=== PATIENT | female | born 1950 | race African-American/Black ===

== ENCOUNTER 2018-04-05 04:26 | Inpatient (IN) | payer MEDICARE, BC ==
[~2018-04-05] VITALS: Ht 171.4 cm; Wt 104.8 kg
[2018-04-05] MEDS ORDERED: ASPIRIN 81MG TABLET PO ONE (05:15)
[2018-04-05] MEDS ORDERED: NITROGLYCERIN OINT 1GM/INCH UDPKT TD ONE (05:15)
[2018-04-05] MEDS ORDERED: FUROSEMIDE 40MG/4ML VIAL IV ONE (05:15)
[2018-04-05 06:27] LABS: CHLORIDE 105 mEq/L (98-107)
[2018-04-05 06:32] LABS: BASOPHILS % 0.2 % (0.0-2.0); EOSINOPHILS % 0.7 % (0.0-5.0); HEMATOCRIT. 41.8 % (36.0-48.0); LYMPHOCYTES % 18.1 % (20.0-50.0); MEAN PLATELET VOLUME 8.8 fl (7.4-10.4); MONOCYTES % 4.7 % (2.0-8.0); NEUTROPHILS % 76.3 % (40.0-76.0); PLATELET 154 x1000/uL (130-400); RED CELL DISTRIBUTION WIDTH 13.7 % (11.6-14.6)
[2018-04-05] MEDS ORDERED: GUAIFENESIN 200MG/10ML SUGAR FREE UDC PO PRN (09:00)
[2018-04-05] MEDS ORDERED: LORAZEPAM 0.5MG TABLET PO PRN (09:00)
[2018-04-05] MEDS ORDERED: DOCUSATE SODIUM 100MG CAPSULE PO PRN (09:00)
[2018-04-05] MEDS ORDERED: MAGNESIUM/ALUMINUM HYDROXIDE/SIMETHICONE 30ML UDC PO PRN (09:00)
[2018-04-05] MEDS ORDERED: IPRATROPIUM/ALBUTEROL 0.5-3(2.5)MG/3ML NEB INH PRN (09:00)
[2018-04-05] MEDS ORDERED: ACETAMINOPHEN 325MG TABLET PO PRN (09:00)
[2018-04-05] MEDS ORDERED: ZOLPIDEM TARTRATE 5MG TABLET PO PRN (09:00)
[2018-04-05] MEDS ORDERED: CLONIDINE 0.1MG TABLET PO PRN (09:00)
[2018-04-05] MEDS ORDERED: ONDANSETRON HCL 4MG/2ML INJ IV PRN (09:00)
[2018-04-05] MEDS ORDERED: NITROGLYCERIN 0.4MG TABLET SL SL PRN (09:00)
[2018-04-05 15:26] LABS: CREATINE KINASE MB FRACTION 3.2 ng/mL (0.5-3.6)
[2018-04-05] MEDS ORDERED: ENOXAPARIN 40MG/0.4ML SYR SUBCUT SCH (15:30)
[2018-04-05] MEDS: FUROSEMIDE 40MG/4ML VIAL IVP SCH (16:12)
[2018-04-05] MEDS: SPIRONOLACTONE 25MG TABLET PO SCH ×2 (16:12→22:42)
[2018-04-05] MEDS: FAMOTIDINE 20MG TABLET PO SCH ×2 (16:13→21:27)
[2018-04-05 20:30] VITALS: BP 133/87
[2018-04-05] MEDS ORDERED: MORPHINE SULFATE 4 MG/ML CPJ (NOT FOR IM USE) IV PRN (21:15)
[2018-04-05] MEDS ORDERED: TRAMADOL 50MG TABLET PO PRN (21:15)
[2018-04-05] MEDS: ATORVASTATIN CALCIUM 20MG TABLET PO SCH (21:28)
[2018-04-05] MEDS: CARVEDILOL 3.125 MG TABLET PO SCH (21:29)
[2018-04-05] MEDS ORDERED: PROVASTATIN PO (21:36)
[2018-04-05] MEDS ORDERED: HYDR25TA PO (21:36)
[2018-04-05] MEDS ORDERED: AMLO5TAB88 PO (21:36)
[2018-04-05 22:00] VITALS: BP 133/87
[2018-04-06] VITALS (7 sets, daily range): BP systolic 102–145; BP diastolic 65–95
[2018-04-06 00:54] LABS: CREATINE KINASE MB FRACTION 3.2 ng/mL (0.5-3.6)
[2018-04-06] MEDS: CARVEDILOL 3.125 MG TABLET PO SCH ×2 (06:15→17:30)
[2018-04-06] MEDS: FUROSEMIDE 40MG/4ML VIAL IVP SCH ×2 (06:15→17:30)
[2018-04-06 07:12] LABS: *BARBITURATES SCREEN URINE NEGATIVE (NEGATIVE)
[2018-04-06 07:13] LABS: *AMPHETAMINES SCREEN URINE NEGATIVE (NEGATIVE); *BENZODIAZEPINES SCREEN URINE NEGATIVE (NEGATIVE); *COCAINE SCREEN URINE NEGATIVE (NEGATIVE); METHADONE URINE SCREEN NEGATIVE (NEGATIVE); OPIATES URINE SCREEN NEGATIVE (NEGATIVE)
[2018-04-06 07:15] LABS: CANNABINOID URINE SCREEN NEGATIVE (NEGATIVE); PHENCYCLIDINE URINE SCREEN NEGATIVE (NEGATIVE)
[2018-04-06] MEDS ORDERED: NA PHOS,M-B/NA PHOS,DI-BA ENEMA 118ML PR PRN (09:00)
[2018-04-06] MEDS: SPIRONOLACTONE 25MG TABLET PO SCH ×2 (09:04→20:43)
[2018-04-06] MEDS: FAMOTIDINE 20MG TABLET PO SCH ×2 (09:04→20:44)
[2018-04-06] MEDS: ENOXAPARIN 30MG/0.3ML SYR SUBCUT SCH ×2 (09:04→20:44)
[2018-04-06] MEDS: ATORVASTATIN CALCIUM 20MG TABLET PO SCH (20:43)
[2018-04-07] VITALS: BP 104/63
[2018-04-07 04:00] VITALS: BP 149/100
[2018-04-07] MEDS: CARVEDILOL 3.125 MG TABLET PO SCH ×2 (05:46→18:32)
[2018-04-07 08:00] VITALS: BP 115/72
[2018-04-07] MEDS: ENOXAPARIN 30MG/0.3ML SYR SUBCUT SCH ×2 (08:13→20:39)
[2018-04-07] MEDS: SPIRONOLACTONE 25MG TABLET PO SCH ×2 (08:13→20:40)
[2018-04-07] MEDS: FAMOTIDINE 20MG TABLET PO SCH ×2 (08:13→20:38)
[2018-04-07] MEDS: FUROSEMIDE 40MG/4ML VIAL IVP SCH (08:13)
[2018-04-07 12:00] VITALS: BP 117/76
[2018-04-07] MEDS ORDERED: REGADENOSON 0.4 MG/5 ML IV NR (15:30)
[2018-04-07 16:00] VITALS: BP 124/82
[2018-04-07] MEDS ORDERED: MORPHINE SULFATE 10MG/5ML ORAL SOLN UDC PO PRN (19:00)
[2018-04-07 20:00] VITALS: BP 110/73
[2018-04-07] MEDS: ATORVASTATIN CALCIUM 20MG TABLET PO SCH (20:38)
[2018-04-08] VITALS: BP 117/76
[2018-04-08 04:00] VITALS: BP 120/81
[2018-04-08] MEDS: CARVEDILOL 3.125 MG TABLET PO SCH (05:29)
[2018-04-08 07:22] LABS: BASOPHILS % 0.6 % (0.0-2.0); EOSINOPHILS % 1.6 % (0.0-5.0); HEMATOCRIT. 44.2 % (36.0-48.0); LYMPHOCYTES % 32.8 % (20.0-50.0); MEAN CORPUSCULAR HEMOGLOBIN 31.3 pg (28.0-32.0); MEAN CORPUSCULAR VOLUME 92.1 fL (81.0-99.0); MEAN PLATELET VOLUME 8.5 fl (7.4-10.4); MONOCYTES % 8.1 % (2.0-8.0); NEUTROPHILS % 56.9 % (40.0-76.0); PLATELET 174 x1000/uL (130-400); RED CELL DISTRIBUTION WIDTH 13.5 % (11.6-14.6)
[2018-04-08 08:00] VITALS: BP 121/81
[2018-04-08] MEDS ORDERED: REGADENOSON 0.4 MG/5 ML IV ONE (08:07)
[2018-04-08 08:08] LABS: CHLORIDE 101 mEq/L (98-107)
[2018-04-08 08:16] LABS: CREATINE KINASE 103 IU/L (26-192)
[2018-04-08 08:19] LABS: CREATINE KINASE MB FRACTION 1.3 ng/mL (0.5-3.6)
[2018-04-08] MEDS: SPIRONOLACTONE 25MG TABLET PO SCH (09:44)
[2018-04-08] MEDS: FAMOTIDINE 20MG TABLET PO SCH (09:44)
[2018-04-08] MEDS: ENOXAPARIN 30MG/0.3ML SYR SUBCUT SCH (09:45)
[2018-04-08 11:41] VITALS: BP 121/81
== END 2018-04-08 13:26 | disposition home health service (06) | DRG 291 ==
LOC: EDSEX 04:26 → ER 04:26 → SUPCPDRO 08:41 → ENRESERV 19:37 → 7WST 20:42
PROVIDERS: ADMIT Internal Medicine; ATTEND Internal Medicine
DX: I11.0 Hypertensive heart disease with heart failure (principal); J96.00 Acute respiratory failure, unspecified whether with hypoxia or hypercapnia; I50.43 Acute on chronic combined systolic (congestive) and diastolic (congestive) heart failure; I42.9 Cardiomyopathy, unspecified; E16.2 Hypoglycemia, unspecified; E78.00 Pure hypercholesterolemia, unspecified; Z79.899 Other long term (current) drug therapy; Z85.72 Personal history of non-Hodgkin lymphomas; Z91.14 Patient's other noncompliance with medication regimen; Z92.21 Personal history of antineoplastic chemotherapy; Z88.0 Allergy status to penicillin; Z88.8 Allergy status to other drugs, medicaments and biological substances
CPT/HCPCS: 36415; 71045; 78452; 80061; 80305; 82550; 82553; 83036; 83735; 83880; 84443; 84484; 85379; 93005; 93017; 93306; 93970; 96372; 96374; 96376; 97162; 97166; 99285; A9500; J1650; J1940; J2785

== ENCOUNTER 2018-10-01 05:12 | Inpatient (IN) | payer BC, MEDICARE ==
[~2018-10-01] VITALS: Ht 170.2 cm; Wt 104.9 kg
[2018-10-01] VITALS (8 sets, daily range): BP systolic 123–150; BP diastolic 65–91
[2018-10-01] MEDS ORDERED: ONDANSETRON HCL 4MG/2ML INJ IV STA (05:17)
[2018-10-01] MEDS ORDERED: NITROGLYCERIN OINT 1GM/INCH UDPKT TD ONE (05:30)
[2018-10-01] MEDS ORDERED: LABETALOL 5MG/ML SYR 20 MG/4 ML SYRINGE IV ONE (05:30)
[2018-10-01 05:37] LABS: BASOPHILS % 0.6 % (0.0-2.0); HEMATOCRIT. 42.7 % (36.0-48.0); HEMOGLOBIN. 13.9 g/dL (12.0-16.0); LYMPHOCYTES % 32.9 % (20.0-50.0); MEAN CORPUSCULAR HEMOGLOBIN 30.4 pg (28.0-32.0); MEAN CORPUSCULAR VOLUME 93.2 fL (81.0-99.0); MEAN PLATELET VOLUME 8.8 fl (7.4-10.4); NEUTROPHILS % 60.5 % (40.0-76.0); PLATELET 151 x1000/uL (130-400); RED BLOOD CELL COUNT 4.58 mill/uL (4.2-5.4); RED CELL DISTRIBUTION WIDTH 13.5 % (11.6-14.6)
[2018-10-01 05:43] LABS: INR 1.1
[2018-10-01 06:03] LABS: BG BASE EXCESS -3.4 mmol/L (-2.0-2.0); BG BILEVEL POS AIRWAY PRESSURE S/T: 18/5; BG CARBOXYHEMOGLOBIN 0.7 % (0.5-1.5); BG DEOXYHEMOGLOBIN 1.2 % (0.0-5.0); BG FRACTION INSPIRED OXYGEN 50; BG HCO3 ACT 22.7 mmol/L (22.0-26.0); BG METHEMOGLOBIN 0.4 % (0.0-1.5); BG OXYGEN SATURATION 98.8 % (92.0-98.5); BG OXYHEMOGLOBIN 97.7 % (94.0-97.0); BG PCO2 44.9 mmHg (35.0-45.0); BG PH 7.322 (7.350-7.450); BG PO2 156.1 mmHg (75.0-100.0); BG SAMPLE SITE RIGHT RADIAL; BG TOTAL HEMOGLOBIN 14.2 g/dL (12.0-18.0); BG VENT MODE MASK - BIPAP
[2018-10-01 06:23] LABS: CHLORIDE 108 mEq/L (98-107)
[2018-10-01] MEDS ORDERED: FAMO-135 MT (10:55)
[2018-10-01] MEDS ORDERED: FURO40TA5 MT (10:55)
[2018-10-01] MEDS ORDERED: COR3 MT (10:55)
[2018-10-01] MEDS ORDERED: CLONIDINE 0.1MG TABLET PO PRN ×2 (11:30→19:00)
[2018-10-01] MEDS: FUROSEMIDE 40MG/4ML VIAL IVP SCH (11:51)
[2018-10-01] MEDS ORDERED: DIPHENHYDRAMINE 50MG/ML VIAL IV PRN (19:00)
[2018-10-01] MEDS ORDERED: TEMAZEPAM 15MG CAPSULE PO PRN (19:00)
[2018-10-01] MEDS ORDERED: IPRATROPIUM/ALBUTEROL 0.5-3(2.5)MG/3ML NEB INH PRN (19:00)
[2018-10-01] MEDS ORDERED: ACETAMINOPHEN 325MG TABLET PO PRN (19:00)
[2018-10-01] MEDS ORDERED: ENOXAPARIN 40MG/0.4ML SYR SUBCUT SCH (19:00)
[2018-10-01] MEDS ORDERED: ONDANSETRON HCL 4MG/2ML INJ IV PRN (19:00)
[2018-10-01] MEDS ORDERED: GUAIFENESIN 200MG/10ML SUGAR FREE UDC PO PRN (19:00)
[2018-10-01] MEDS ORDERED: MAGNESIUM HYDROXIDE 400MG/5ML 30ML UDC PO PRN (19:00)
[2018-10-01] MEDS ORDERED: MAGNESIUM/ALUMINUM HYDROXIDE/SIMETHICONE 30ML UDC PO PRN (19:00)
[2018-10-01] MEDS: FAMOTIDINE 20MG TABLET PO SCH (21:30)
[2018-10-01] MEDS: CARVEDILOL 3.125 MG TABLET PO SCH (21:31)
[2018-10-01] MEDS: ENOXAPARIN 30MG/0.3ML SYR SUBCUT SCH (21:31)
[2018-10-01] MEDS: AMLODIPINE 5MG TABLET PO SCH (21:58)
[2018-10-01] MEDS: SODIUM CHLORIDE 0.9% INJ 3ML FLUSH IVF SCH (22:20)
[2018-10-02] VITALS (12 sets, daily range): BP systolic 101–140; BP diastolic 55–95
[2018-10-02] MEDS: SODIUM CHLORIDE 0.9% INJ 3ML FLUSH IVF SCH ×3 (05:45→22:19)
[2018-10-02] MEDS: ENOXAPARIN 30MG/0.3ML SYR SUBCUT SCH ×2 (07:59→21:35)
[2018-10-02] MEDS: AMLODIPINE 5MG TABLET PO SCH (07:59)
[2018-10-02] MEDS: FUROSEMIDE 40MG/4ML VIAL IVP SCH (08:00)
[2018-10-02] MEDS: CARVEDILOL 3.125 MG TABLET PO SCH ×2 (08:00→22:23)
[2018-10-02] MEDS: LOSARTAN POTASSIUM 25 MG TABLET PO SCH (13:31)
[2018-10-02] MEDS ORDERED: POTASSIUM CHLORIDE 20MEQ TABLET SR PO NR (19:11)
[2018-10-02] MEDS: FAMOTIDINE 20MG TABLET PO SCH (21:34)
[2018-10-03] VITALS (8 sets, daily range): BP systolic 105–137; BP diastolic 55–99
[2018-10-03] MEDS: SODIUM CHLORIDE 0.9% INJ 3ML FLUSH IVF SCH ×2 (05:57→14:00)
[2018-10-03 05:59] LABS: BASOPHILS % 0.2 % (0.0-2.0); EOSINOPHILS % 2.6 % (0.0-5.0); HEMATOCRIT. 39.7 % (36.0-48.0); HEMOGLOBIN. 13.1 g/dL (12.0-16.0); LYMPHOCYTES % 26.2 % (20.0-50.0); MEAN CORPUSCULAR HEMOGLOBIN 30.9 pg (28.0-32.0); MEAN CORPUSCULAR VOLUME 93.6 fL (81.0-99.0); MEAN PLATELET VOLUME 9.4 fl (7.4-10.4); MONOCYTES % 8.4 % (2.0-8.0); NEUTROPHILS % 62.6 % (40.0-76.0); PLATELET 142 x1000/uL (130-400); RED BLOOD CELL COUNT 4.24 mill/uL (4.2-5.4); RED CELL DISTRIBUTION WIDTH 14.1 % (11.6-14.6)
[2018-10-03 06:46] LABS: CHLORIDE 104 mEq/L (98-107)
[2018-10-03] MEDS: CARVEDILOL 3.125 MG TABLET PO SCH (08:26)
[2018-10-03] MEDS: FUROSEMIDE 40MG/4ML VIAL IVP SCH (08:26)
[2018-10-03] MEDS: LOSARTAN POTASSIUM 25 MG TABLET PO SCH (08:27)
[2018-10-03] MEDS: ENOXAPARIN 30MG/0.3ML SYR SUBCUT SCH (08:27)
== END 2018-10-03 17:00 | disposition home or self-care (01) | DRG 291 ==
LOC: ER 05:46 → 3WST 05:55 → EDBEDREQ 06:13 → EDBEDREQTM 06:13 → ENRESERV 09:51
PROVIDERS: ADMIT Internal Medicine; ATTEND Internal Medicine
PROC: 5A09357 Assistance with Respiratory Ventilation, Less than 24 Consecutive Hours, Continuous Positive Airway Pressure (ICD-10-PCS; principal; 2018-10-01)
DX: I11.0 Hypertensive heart disease with heart failure (principal); J96.00 Acute respiratory failure, unspecified whether with hypoxia or hypercapnia; E11.9 Type 2 diabetes mellitus without complications; I50.23 Acute on chronic systolic (congestive) heart failure; E78.00 Pure hypercholesterolemia, unspecified; E78.5 Hyperlipidemia, unspecified; I42.9 Cardiomyopathy, unspecified; Z82.49 Family history of ischemic heart disease and other diseases of the circulatory system; Z92.21 Personal history of antineoplastic chemotherapy; Z83.3 Family history of diabetes mellitus; Z88.0 Allergy status to penicillin; Z88.8 Allergy status to other drugs, medicaments and biological substances; Z79.899 Other long term (current) drug therapy; Z79.82 Long term (current) use of aspirin; Z85.72 Personal history of non-Hodgkin lymphomas
CPT/HCPCS: 36415; 36600; 71045; 80048; 82375; 82805; 83605; 83880; 84484; 93005; 93306; 94660; 96361; 96374; 96375; 99285; J1650; J1940; J2405; J3490

== ENCOUNTER 2019-05-09 03:48 | Inpatient (IN) | payer BC ==
[~2019-05-09] VITALS: Ht 171.4 cm; Wt 103.0 kg
[~2019-05-09 03:48] MED LIST: COR3 MT; FAMO-135 MT; FURO40TA5 MT
[2019-05-09] MEDS ORDERED: FUROSEMIDE 20MG/2ML VIAL IVP ONE ×2 (04:00→04:30)
[2019-05-09 04:29] LABS: CHLORIDE 107 mEq/L (98-107)
[2019-05-09 04:33] LABS: BG BASE EXCESS 0.2 mmol/L (-2.0-2.0); BG BILEVEL POS AIRWAY PRESSURE 15/5; BG CARBOXYHEMOGLOBIN 0.7 % (0.5-1.5); BG DEOXYHEMOGLOBIN 1.4 % (0.0-5.0); BG FRACTION INSPIRED OXYGEN 40; BG HCO3 ACT 25.4 mmol/L (22.0-26.0); BG METHEMOGLOBIN 0.3 % (0.0-1.5); BG OXYGEN SATURATION 98.6 % (92.0-98.5); BG OXYHEMOGLOBIN 97.6 % (94.0-97.0); BG PCO2 43.5 mmHg (35.0-45.0); BG PH 7.385 (7.350-7.450); BG PO2 136.6 mmHg (75.0-100.0); BG SAMPLE SITE RIGHT RADIAL; BG TOTAL HEMOGLOBIN 13.9 g/dL (12.0-18.0); BG VENT MODE MASK - BIPAP; BG VENT RATE 16 set
[2019-05-09 04:52] LABS: BASOPHILS % 0.3 % (0.0-2.0); EOSINOPHILS % 1.3 % (0.0-5.0); HEMATOCRIT. 40.5 % (36.0-48.0); HEMOGLOBIN. 13.5 g/dL (12.0-16.0); LYMPHOCYTES % 15.4 % (20.0-50.0); MEAN CORPUSCULAR HEMOGLOBIN 31.1 pg (28.0-32.0); MEAN CORPUSCULAR VOLUME 93.6 fL (81.0-99.0); MEAN PLATELET VOLUME 8.6 fl (7.4-10.4); MONOCYTES % 4.3 % (2.0-8.0); NEUTROPHILS % 78.7 % (40.0-76.0); PLATELET 138 x1000/uL (130-400); RED BLOOD CELL COUNT 4.33 mill/uL (4.2-5.4); RED CELL DISTRIBUTION WIDTH 14.1 % (11.6-14.6)
[2019-05-09] MEDS ORDERED: FAMOTIDINE 20MG/2ML VIAL IV ONE (05:30)
[2019-05-09] MEDS ORDERED: ASPIRIN 325MG TABLET PO ONE (05:30)
[2019-05-09] MEDS ORDERED: ONDANSETRON HCL 4MG/2ML INJ IV PRN (09:30)
[2019-05-09] MEDS ORDERED: ACETAMINOPHEN 325MG TABLET PO PRN (09:30)
[2019-05-09] MEDS ORDERED: IPRATROPIUM/ALBUTEROL 0.5-3(2.5)MG/3ML NEB HHN PRN (11:00)
[2019-05-09] MEDS ORDERED: FUROSEMIDE 40MG/4ML VIAL IVP NR (18:15)
[2019-05-09 20:00] VITALS: BP 125/72
[2019-05-09] MEDS: ENOXAPARIN 30MG/0.3ML SYR SUBCUT SCH (21:45)
[2019-05-09 22:00] VITALS: BP 125/72
[2019-05-10] VITALS: BP 113/69
[2019-05-10] MEDS ORDERED: LOSA25TA26 PO ×2 (01:45→13:40)
[2019-05-10] MEDS ORDERED: LIP40 PO ×2 (01:45→13:40)
[2019-05-10 04:00] VITALS: BP 128/84
[2019-05-10 06:47] LABS: BASOPHILS % 0.7 % (0.0-2.0); EOSINOPHILS % 1.6 % (0.0-5.0); HEMATOCRIT. 38.1 % (36.0-48.0); HEMOGLOBIN. 12.8 g/dL (12.0-16.0); LYMPHOCYTES % 29.7 % (20.0-50.0); MEAN CORPUSCULAR HEMOGLOBIN 30.9 pg (28.0-32.0); MEAN CORPUSCULAR VOLUME 91.8 fL (81.0-99.0); MEAN PLATELET VOLUME 9.8 fl (7.4-10.4); MONOCYTES % 8.6 % (2.0-8.0); NEUTROPHILS % 59.4 % (40.0-76.0); PLATELET 141 x1000/uL (130-400); RED BLOOD CELL COUNT 4.15 mill/uL (4.2-5.4)
[2019-05-10 06:52] LABS: CHLORIDE 106 mEq/L (98-107)
[2019-05-10 08:00] VITALS: BP 113/71
[2019-05-10 08:09] LABS: CLARITY URINE CLEAR (CLEAR); COLOR URINE YELLOW (YELLOW); KETONES URINE NEGATIVE (NEGATIVE); LEUKOCYTE ESTERASE URINE NEGATIVE (NEGATIVE); NITRITE URINE NEGATIVE (NEGATIVE); OCCULT BLOOD URINE NEGATIVE (NEGATIVE); PROTEIN URINE NEGATIVE (NEGATIVE); SPECIFIC GRAVITY URINE 1.019 (1.005-1.030); UROBILINOGEN URINE 0.2 E.U./dL (0.2-1.0)
[2019-05-10 08:41] LABS: *AMPHETAMINES SCREEN URINE NEGATIVE (NEGATIVE); *BARBITURATES SCREEN URINE NEGATIVE (NEGATIVE); *BENZODIAZEPINES SCREEN URINE NEGATIVE (NEGATIVE); *COCAINE SCREEN URINE NEGATIVE (NEGATIVE); METHADONE URINE SCREEN NEGATIVE (NEGATIVE); OPIATES URINE SCREEN NEGATIVE (NEGATIVE)
[2019-05-10 08:42] LABS: CANNABINOID URINE SCREEN NEGATIVE (NEGATIVE); PHENCYCLIDINE URINE SCREEN NEGATIVE (NEGATIVE)
[2019-05-10] MEDS ORDERED: FUROSEMIDE 40MG/4ML VIAL IVP SCH (09:00)
[2019-05-10] MEDS ORDERED: ASPIRIN 81MG TABLET PO SCH (09:00)
[2019-05-10] MEDS: ENOXAPARIN 30MG/0.3ML SYR SUBCUT SCH (09:50)
[2019-05-10] MEDS ORDERED: POTASSIUM CHLORIDE 20MEQ TABLET SR PO SCH (10:00)
[2019-05-10 12:00] VITALS: BP 112/73
[2019-05-10] MEDS ORDERED: FURO40TA5 MT (13:40)
[2019-05-10] MEDS ORDERED: POTA20TA82 MT (13:40)
[2019-05-10] MEDS ORDERED: COR3 MT (13:40)
[2019-05-10 14:31] VITALS: BP 112/73
[2019-05-11] MEDS ORDERED: POTASSIUM CHLORIDE 20MEQ TABLET SR PO SCH (09:00)
== END 2019-05-10 16:20 | disposition home or self-care (01) | DRG 291 ==
LOC: ER 03:48 → 5WST 05:23 → EDBEDREQ 05:25 → EDBEDREQTM 05:25 → ENRESERV 18:10
PROVIDERS: ADMIT Internal Medicine; ATTEND Internal Medicine
PROC: 5A09357 Assistance with Respiratory Ventilation, Less than 24 Consecutive Hours, Continuous Positive Airway Pressure (ICD-10-PCS; principal; 2019-05-09)
DX: I11.0 Hypertensive heart disease with heart failure (principal); J96.00 Acute respiratory failure, unspecified whether with hypoxia or hypercapnia; I50.23 Acute on chronic systolic (congestive) heart failure; I42.9 Cardiomyopathy, unspecified; I34.0 Nonrheumatic mitral (valve) insufficiency; E66.9 Obesity, unspecified; J06.9 Acute upper respiratory infection, unspecified; Z91.19 Patient's noncompliance with other medical treatment and regimen; Z68.35 Body mass index [BMI] 35.0-35.9, adult; Z88.0 Allergy status to penicillin; Z88.8 Allergy status to other drugs, medicaments and biological substances; Z71.3 Dietary counseling and surveillance
CPT/HCPCS: 36415; 36600; 71045; 80048; 80053; 80305; 81003; 82375; 82805; 83880; 84484; 85025; 93005; 93306; 96374; 97161; 99291; J1650; J1940; J3490

== ENCOUNTER 2019-07-19 08:45 | Inpatient (IN) | payer BC ==
[~2019-07-19] VITALS: Ht 170.2 cm; Wt 102.5 kg
[~2019-07-19 08:45] MED LIST changes: +LIP40 PO; +LOSA25TA26 PO; +POTA20TA82 MT
[2019-07-19] MEDS ORDERED: FUROSEMIDE 40MG/4ML VIAL IV ONE (09:00)
[2019-07-19] MEDS ORDERED: NITROGLYCERIN OINT 1GM/INCH UDPKT TD ONE (09:00)
[2019-07-19 09:10] LABS: BASOPHILS % 0.6 % (0.0-2.0); EOSINOPHILS % 1.2 % (0.0-5.0); HEMATOCRIT. 42.9 % (36.0-48.0); HEMOGLOBIN. 14.3 g/dL (12.0-16.0); LYMPHOCYTES % 42.6 % (20.0-50.0); MEAN CORPUSCULAR HEMOGLOBIN 31.8 pg (28.0-32.0); MEAN CORPUSCULAR VOLUME 95.5 fL (81.0-99.0); MEAN PLATELET VOLUME 9.7 fl (7.4-10.4); MONOCYTES % 5.6 % (2.0-8.0); PLATELET 152 x1000/uL (130-400); RED BLOOD CELL COUNT 4.49 mill/uL (4.2-5.4); RED CELL DISTRIBUTION WIDTH 13.8 % (11.6-14.6)
[2019-07-19 09:16] LABS: CHLORIDE 103 mEq/L (98-107)
[2019-07-19] MEDS ORDERED: LEVOFLOXACIN 750MG PREMIX 150 ML IV ONE (10:15)
[2019-07-19] MEDS ORDERED: ACETAMINOPHEN 325MG TABLET PO PRN (11:45)
[2019-07-19] MEDS ORDERED: ONDANSETRON HCL 4MG/2ML INJ IV PRN (11:45)
[2019-07-19] MEDS ORDERED: DEXTROSE 50% WATER 50ML SYRINGE IV PRN (11:45)
[2019-07-19] MEDS ORDERED: SODIUM CHLORIDE 0.9% 1,000 ML IV SCH (11:45)
[2019-07-19] MEDS: LOSARTAN POTASSIUM 25 MG TABLET PO SCH (13:00)
[2019-07-19] MEDS: INSULIN LISPRO 100 UNITS/ML SUBCUT SCH ×2 (13:20→18:16)
[2019-07-19] MEDS: BLOOD SUGAR DIAGNOSTIC STRIP TEST SCH ×3 (13:59→23:50)
[2019-07-19] MEDS ORDERED: IPRATROPIUM/ALBUTEROL 0.5-3(2.5)MG/3ML NEB HHN PRN (15:15)
[2019-07-19] MEDS ORDERED: METRONIDAZOLE 500 MG PREMIX 100 ML IV SCH (15:15)
[2019-07-19 15:24] LABS: CLARITY URINE CLEAR (CLEAR); COLOR URINE YELLOW (YELLOW); KETONES URINE NEGATIVE (NEGATIVE); LEUKOCYTE ESTERASE URINE NEGATIVE (NEGATIVE); NITRITE URINE NEGATIVE (NEGATIVE); OCCULT BLOOD URINE NEGATIVE (NEGATIVE); PH URINE 6.5 (4.5-8.0); PROTEIN URINE TRACE (NEGATIVE); SPECIFIC GRAVITY URINE 1.006 (1.005-1.030); UROBILINOGEN URINE 0.2 E.U./dL (0.2-1.0)
[2019-07-19] MEDS ORDERED: CEFEPIME HCL 1000MG/VIAL INJ IM SCH (21:00)
[2019-07-19 22:52] VITALS: BP 122/71
[2019-07-20] VITALS (12 sets, daily range): BP systolic 97–119; BP diastolic 55–78
[2019-07-20] MEDS: IPRATROPIUM/ALBUTEROL 0.5-3(2.5)MG/3ML NEB HHN SCH ×4 (00:41→20:05)
[2019-07-20] MEDS: METRONIDAZOLE 500 MG PREMIX 100 ML IV SCH ×4 (01:19→23:57)
[2019-07-20 06:24] LABS: BASOPHILS % 0.2 % (0.0-2.0); EOSINOPHILS % 0.7 % (0.0-5.0); HEMATOCRIT. 39.2 % (36.0-48.0); MEAN CORPUSCULAR HEMOGLOBIN 31.1 pg (28.0-32.0); MEAN CORPUSCULAR VOLUME 93.5 fL (81.0-99.0); MEAN PLATELET VOLUME 9.2 fl (7.4-10.4); MONOCYTES % 11.3 % (2.0-8.0); NEUTROPHILS % 57.8 % (40.0-76.0); PLATELET 125 x1000/uL (130-400); RED BLOOD CELL COUNT 4.19 mill/uL (4.2-5.4); RED CELL DISTRIBUTION WIDTH 13.9 % (11.6-14.6)
[2019-07-20 06:47] LABS: CHLORIDE 105 mEq/L (98-107)
[2019-07-20] MEDS: BLOOD SUGAR DIAGNOSTIC STRIP TEST SCH ×4 (06:50→21:17)
[2019-07-20] MEDS: INSULIN LISPRO 100 UNITS/ML SUBCUT SCH ×5 (07:20→21:00)
[2019-07-20] MEDS: CARVEDILOL 3.125 MG TABLET PO SCH ×2 (08:09)
[2019-07-20] MEDS: GUAIFENESIN 600MG ER TABLET PO SCH ×2 (08:09→21:16)
[2019-07-20] MEDS: HEPARIN 5000 UNITS/ML VIAL SUBCUT SCH ×2 (08:29→21:16)
[2019-07-20] MEDS: FUROSEMIDE 40MG TABLET PO SCH ×3 (09:00→21:16)
[2019-07-20] MEDS: LOSARTAN POTASSIUM 25 MG TABLET PO SCH (09:00)
[2019-07-20] MEDS: POTASSIUM CHLORIDE 20MEQ TABLET SR PO SCH (09:59)
[2019-07-20] MEDS: AZTREONAM 1 G in DEXTROSE 5% WATER 50 ML IV SCH ×2 (11:33→21:17)
[2019-07-20] MEDS ORDERED: ATORVASTATIN CALCIUM 20MG TABLET PO SCH (21:00)
[2019-07-21] VITALS (9 sets, daily range): BP systolic 94–123; BP diastolic 53–87
[2019-07-21] MEDS: IPRATROPIUM/ALBUTEROL 0.5-3(2.5)MG/3ML NEB HHN SCH ×3 (01:40→13:27)
[2019-07-21] MEDS: BLOOD SUGAR DIAGNOSTIC STRIP TEST SCH ×2 (05:55→11:53)
[2019-07-21 07:12] LABS: BASOPHILS % 0.4 % (0.0-2.0); EOSINOPHILS % 1.6 % (0.0-5.0); HEMATOCRIT. 37.5 % (36.0-48.0); HEMOGLOBIN. 12.7 g/dL (12.0-16.0); MEAN CORPUSCULAR HEMOGLOBIN 31.4 pg (28.0-32.0); MEAN CORPUSCULAR VOLUME 92.9 fL (81.0-99.0); MEAN PLATELET VOLUME 9.5 fl (7.4-10.4); MONOCYTES % 8.8 % (2.0-8.0); NEUTROPHILS % 55.2 % (40.0-76.0); PLATELET 128 x1000/uL (130-400); RED BLOOD CELL COUNT 4.04 mill/uL (4.2-5.4); RED CELL DISTRIBUTION WIDTH 13.8 % (11.6-14.6)
[2019-07-21] MEDS: INSULIN LISPRO 100 UNITS/ML SUBCUT SCH ×2 (07:20→11:53)
[2019-07-21 07:55] LABS: CHLORIDE 106 mEq/L (98-107)
[2019-07-21] MEDS: METRONIDAZOLE 500 MG PREMIX 100 ML IV SCH (07:59)
[2019-07-21] MEDS: FUROSEMIDE 40MG TABLET PO SCH (08:03)
[2019-07-21] MEDS: POTASSIUM CHLORIDE 20MEQ TABLET SR PO SCH (08:03)
[2019-07-21] MEDS: GUAIFENESIN 600MG ER TABLET PO SCH (08:03)
[2019-07-21] MEDS: HEPARIN 5000 UNITS/ML VIAL SUBCUT SCH (08:03)
[2019-07-21] MEDS: AZTREONAM 1 G in DEXTROSE 5% WATER 50 ML IV SCH (11:43)
[2019-07-21] MEDS ORDERED: GUAI600T44 PO (12:58)
[2019-07-21] MEDS ORDERED: AZIT500T8 MT (12:58)
[2019-07-22] MEDS ORDERED: METRONIDAZOLE 500MG TABLET PO SCH (08:00)
== END 2019-07-21 16:50 | disposition home health service (06) | DRG 871 ==
LOC: ER 08:45 → EDBEDREQ 11:11 → EDBEDREQSVC 11:11 → EDBEDREQTM 11:11 → CANRESERV 20:28 → ENRESERV 20:28 → 3WST 22:34
PROVIDERS: ADMIT Family Medicine Adult Medicine; ATTEND Family Medicine Adult Medicine
PROC: 5A09357 Assistance with Respiratory Ventilation, Less than 24 Consecutive Hours, Continuous Positive Airway Pressure (ICD-10-PCS; principal; 2019-07-19)
DX: A41.9 Sepsis, unspecified organism (principal); J18.9 Pneumonia, unspecified organism; J96.01 Acute respiratory failure with hypoxia; I50.23 Acute on chronic systolic (congestive) heart failure; I42.9 Cardiomyopathy, unspecified; E78.5 Hyperlipidemia, unspecified; E11.65 Type 2 diabetes mellitus with hyperglycemia; E87.6 Hypokalemia; I35.0 Nonrheumatic aortic (valve) stenosis; I11.0 Hypertensive heart disease with heart failure; I07.1 Rheumatic tricuspid insufficiency; I49.3 Ventricular premature depolarization; Z91.14 Patient's other noncompliance with medication regimen; Z79.899 Other long term (current) drug therapy; Z82.49 Family history of ischemic heart disease and other diseases of the circulatory system; Z88.0 Allergy status to penicillin; Z88.8 Allergy status to other drugs, medicaments and biological substances
CPT/HCPCS: 36415; 71045; 80048; 80053; 81003; 82962; 83036; 83735; 83880; 84484; 85025; 93005; 93306; 94640; 94660; 96374; 97162; 99291; J1644; J1940; J1956; J3490; J7060

== ENCOUNTER 2020-02-07 08:34 | Inpatient (IN) | payer BC ==
[2020-02-07] VITALS (36 sets, daily range): BP systolic 82–148; BP diastolic 49–130
[~2020-02-07] VITALS: Ht 172.7 cm; Wt 106.1 kg
[~2020-02-07 08:34] MED LIST changes: +AZIT500T8 MT; +GUAI600T44 PO; -LOSA25TA26 PO
[2020-02-07] MEDS ORDERED: PROPOFOL 10MG/ML 100ML 100 ML IV ONE (08:45)
[2020-02-07] MEDS ORDERED: ETOMIDATE 2MG/ML 10ML VIAL IV ONE ×2 (08:45→15:00)
[2020-02-07] MEDS ORDERED: FENTANYL CITRATE/PF 50MCG/ML 2ML VIAL IV ONE (08:45)
[2020-02-07] MEDS ORDERED: SUCCINYLCHOLINE CHLORIDE 200MG/10ML IV ONE ×2 (08:45→15:00)
[2020-02-07 09:04] LABS: BG BASE EXCESS -8.8 mmol/L (-2.0-2.0); BG CARBOXYHEMOGLOBIN 0.1 % (0.5-1.5); BG DEOXYHEMOGLOBIN 1.3 % (0.0-5.0); BG HCO3 ACT 23.1 mmol/L (22.0-26.0); BG METHEMOGLOBIN 0.2 % (0.0-1.5); BG OXYGEN SATURATION 98.7 % (92.0-98.5); BG OXYHEMOGLOBIN 98.4 % (94.0-97.0); BG PCO2 81.7 mmHg (35.0-45.0); BG PO2 190.6 mmHg (75.0-100.0); BG SAMPLE SITE LEFT RADIAL; BG TOTAL HEMOGLOBIN 14.6 g/dL (12.0-18.0); BG TOTAL RESPIRATORY RATE 19 b/min; BG VENT MODE VENT - AC
[2020-02-07] MEDS ORDERED: METHYLPREDNISOLONE SOD SUCC 125 MG/2 ML VIAL IV STA (09:04)
[2020-02-07] MEDS ORDERED: ALBUTEROL (0.083%) 2.5MG/3ML NEB HHN STA (09:04)
[2020-02-07] MEDS ORDERED: IPRATROPIUM BROMIDE (0.02%) 0.5MG/2.5ML NEB HHN STA (09:04)
[2020-02-07] MEDS ORDERED: MAGNESIUM 2 G PREMIX 50 ML IV STA (09:04)
[2020-02-07 09:13] LABS: BASOPHILS % 0.6 % (0.0-2.0); EOSINOPHILS % 0.9 % (0.0-5.0); HEMATOCRIT. 44.5 % (36.0-48.0); HEMOGLOBIN. 14.3 g/dL (12.0-16.0); LYMPHOCYTES % 41.8 % (20.0-50.0); MEAN CORPUSCULAR HEMOGLOBIN 30.7 pg (28.0-32.0); MEAN CORPUSCULAR VOLUME 95.6 fL (81.0-99.0); MEAN PLATELET VOLUME 10.4 fl (7.4-10.4); MONOCYTES % 5.3 % (2.0-8.0); NEUTROPHILS % 51.4 % (40.0-76.0); PLATELET 160 x1000/uL (130-400); RED BLOOD CELL COUNT 4.65 mill/uL (4.2-5.4); RED CELL DISTRIBUTION WIDTH 14.4 % (11.6-14.6)
[2020-02-07 09:20] LABS: CHLORIDE 104 mEq/L (98-107)
[2020-02-07 09:23] LABS: D-DIMER 3.82 mg/L FEU (<0.50); INR 1.1; PROTHROMBIN TIME 11.6 sec (9.6-11.0)
[2020-02-07 09:26] LABS: C REACTIVE PROTEIN QUANT 0.3 mg/L (0.0-3.0)
[2020-02-07 09:29] LABS: CREATINE KINASE 251 IU/L (26-192)
[2020-02-07 10:27] LABS: CLARITY URINE CLOUDY (CLEAR); COLOR URINE YELLOW (YELLOW); KETONES URINE NEGATIVE (NEGATIVE); LEUKOCYTE ESTERASE URINE NEGATIVE (NEGATIVE); NITRITE URINE NEGATIVE (NEGATIVE); OCCULT BLOOD URINE 2+ (NEGATIVE); PROTEIN URINE 3+ (NEGATIVE); SPECIFIC GRAVITY URINE 1.015 (1.005-1.030)
[2020-02-07] MEDS ORDERED: MEROPENEM 1,000 MG in SODIUM CHLORIDE 0.9% 100 ML IV ONE (12:15)
[2020-02-07] MEDS ORDERED: VANCOMYCIN 1 G PREMIX 200 ML IV ONE (12:15)
[2020-02-07] MEDS ORDERED: DEXTROSE 50% WATER 50ML SYRINGE IV PRN (12:45)
[2020-02-07] MEDS ORDERED: ACETAMINOPHEN 325MG TABLET PO PRN (12:45)
[2020-02-07] MEDS ORDERED: ONDANSETRON HCL 4MG/2ML INJ IV PRN (12:45)
[2020-02-07] MEDS: BLOOD SUGAR DIAGNOSTIC STRIP TEST SCH ×3 (13:00→20:27)
[2020-02-07] MEDS ORDERED: AZTREONAM 1 G in DEXTROSE 5% WATER 50 ML IV SCH (14:00)
[2020-02-07] MEDS ORDERED: PROPOFOL 10MG/ML 100ML 100 ML IV NR (14:00)
[2020-02-07] MEDS: FUROSEMIDE 40MG/4ML VIAL IVP SCH ×3 (15:23→17:36)
[2020-02-07 15:35] LABS: BG CARBOXYHEMOGLOBIN 0.4 % (0.5-1.5); BG DEOXYHEMOGLOBIN 0.8 % (0.0-5.0); BG FRACTION INSPIRED OXYGEN 100; BG HCO3 ACT 29.4 mmol/L (22.0-26.0); BG METHEMOGLOBIN 0.4 % (0.0-1.5); BG OXYGEN SATURATION 99.2 % (92.0-98.5); BG OXYHEMOGLOBIN 98.4 % (94.0-97.0); BG PCO2 51.9 mmHg (35.0-45.0); BG PH 7.371 (7.350-7.450); BG PO2 210.3 mmHg (75.0-100.0); BG SAMPLE SITE RIGHT BRACHIAL; BG TOTAL RESPIRATORY RATE 14 b/min; BG VENT MODE VENT - AC
[2020-02-07] MEDS ORDERED: IPRATROPIUM/ALBUTEROL 0.5-3(2.5)MG/3ML NEB HHN PRN (16:15)
[2020-02-07 17:16] LABS: *AMPHETAMINES SCREEN URINE NEGATIVE (NEGATIVE); *BARBITURATES SCREEN URINE NEGATIVE (NEGATIVE); *BENZODIAZEPINES SCREEN URINE NEGATIVE (NEGATIVE); *COCAINE SCREEN URINE NEGATIVE (NEGATIVE); CANNABINOID URINE SCREEN NEGATIVE (NEGATIVE); METHADONE URINE SCREEN NEGATIVE (NEGATIVE); OPIATES URINE SCREEN NEGATIVE (NEGATIVE); PHENCYCLIDINE URINE SCREEN NEGATIVE (NEGATIVE)
[2020-02-07] MEDS: AZTREONAM 1 G in DEXTROSE 5% WATER 50 ML IV SCH (17:16)
[2020-02-07] MEDS: AZITHROMYCIN 500 MG in DEXT 5% WATER 250 ML IV SCH (17:17)
[2020-02-07] MEDS: PANTOPRAZOLE SODIUM 40 MG/VIAL IV SCH (17:26)
[2020-02-07] MEDS: METHYLPREDNISOLONE SOD SUCC 40 MG/ML VIAL IV SCH (17:30)
[2020-02-07] MEDS: INSULIN LISPRO 100 UNITS/ML SUBCUT SCH ×2 (18:06→20:43)
[2020-02-07] MEDS: PROPOFOL 10MG/ML 100ML 100 ML IV PRN (18:48)
[2020-02-07] MEDS: CARVEDILOL 3.125 MG TABLET PO SCH (20:12)
[2020-02-07] MEDS: IPRATROPIUM/ALBUTEROL 0.5-3(2.5)MG/3ML NEB HHN SCH (20:29)
[2020-02-07] MEDS: HEPARIN 5000 UNITS/ML VIAL SUBCUT SCH (21:01)
[2020-02-07] MEDS: VANCOMYCIN 750 MG PREMIX 150 ML IV SCH (21:14)
[2020-02-07] MEDS ORDERED: VANCOMYCIN 750 MG PREMIX 150 ML IV SCH (22:00)
[2020-02-08] VITALS (82 sets, daily range): BP systolic 79–157; BP diastolic 44–86
[2020-02-08] MEDS: PROPOFOL 10MG/ML 100ML 100 ML IV PRN ×2 (00:16→06:45)
[2020-02-08] MEDS: IPRATROPIUM/ALBUTEROL 0.5-3(2.5)MG/3ML NEB HHN SCH ×6 (00:27→20:47)
[2020-02-08] MEDS: METHYLPREDNISOLONE SOD SUCC 40 MG/ML VIAL IV SCH ×3 (01:31→18:15)
[2020-02-08 05:39] LABS: HEMOGLOBIN. 14.8 g/dL (12.0-16.0); MEAN CORPUSCULAR HEMOGLOBIN 30.9 pg (28.0-32.0); MEAN CORPUSCULAR VOLUME 94.1 fL (81.0-99.0); MEAN PLATELET VOLUME 10.1 fl (7.4-10.4); PLATELET 154 x1000/uL (130-400); RED BLOOD CELL COUNT 4.78 mill/uL (4.2-5.4); RED CELL DISTRIBUTION WIDTH 13.9 % (11.6-14.6)
[2020-02-08 05:47] LABS: CHLORIDE 104 mEq/L (98-107)
[2020-02-08] MEDS: AZTREONAM 1 G in DEXTROSE 5% WATER 50 ML IV SCH ×2 (05:55→18:15)
[2020-02-08] MEDS: INSULIN LISPRO 100 UNITS/ML SUBCUT SCH ×4 (06:12→21:00)
[2020-02-08] MEDS: BLOOD SUGAR DIAGNOSTIC STRIP TEST SCH ×4 (06:12→21:52)
[2020-02-08] MEDS: FUROSEMIDE 40MG/4ML VIAL IVP SCH (07:04)
[2020-02-08] MEDS: CARVEDILOL 3.125 MG TABLET PO SCH ×2 (09:00→21:00)
[2020-02-08 09:02] LABS: BG BASE EXCESS 4.5 mmol/L (-2.0-2.0); BG DEOXYHEMOGLOBIN 2.7 % (0.0-5.0); BG FRACTION INSPIRED OXYGEN 50; BG HCO3 ACT 28.8 mmol/L (22.0-26.0); BG METHEMOGLOBIN 0.3 % (0.0-1.5); BG OXYGEN SATURATION 97.3 % (92.0-98.5); BG PCO2 41.8 mmHg (35.0-45.0); BG PH 7.456 (7.350-7.450); BG PO2 92.7 mmHg (75.0-100.0); BG SAMPLE SITE RIGHT RADIAL; BG TOTAL HEMOGLOBIN 13.4 g/dL (12.0-18.0); BG VENT MODE VENT - AC
[2020-02-08] MEDS: HEPARIN 5000 UNITS/ML VIAL SUBCUT SCH ×2 (09:57→22:57)
[2020-02-08] MEDS: PANTOPRAZOLE SODIUM 40 MG/VIAL IV SCH (09:57)
[2020-02-08] MEDS: VANCOMYCIN 750 MG PREMIX 150 ML IV SCH ×2 (09:58→22:58)
[2020-02-08] MEDS ORDERED: KCL 10MEQ/50ML PREMIX 50 ML IV NR (12:00)
[2020-02-08] MEDS ORDERED: FUROSEMIDE 40MG/4ML VIAL IVP SCH (13:15)
[2020-02-08] MEDS: KCL 20MEQ/100ML PREMIX 100 ML IV SCH ×2 (13:21→15:02)
[2020-02-08 14:06] LABS: PLATELET ESTIMATE NORMAL
[2020-02-08] MEDS: AZITHROMYCIN 500 MG in DEXT 5% WATER 250 ML IV SCH (16:40)
[2020-02-08] MEDS ORDERED: PROPOFOL 10MG/ML 100ML 100 ML IV PRN (16:45)
[2020-02-08] MEDS ORDERED: NOREPINEPHRINE 8 MG in DEXT 5% WATER 242 ML IV PRN (21:39)
[2020-02-08] MEDS ORDERED: MIDAZOLAM HCL 100 MG in DEXT 5% WATER 80 ML IV PRN (21:45)
[2020-02-08] MEDS ORDERED: FENTANYL CITRATE/PF 1,000 MCG in SODIUM CHLORIDE 0.9% 80 ML IV PRN (21:45)
[2020-02-09] VITALS (41 sets, daily range): BP systolic 84–144; BP diastolic 57–92
[2020-02-09] MEDS: IPRATROPIUM/ALBUTEROL 0.5-3(2.5)MG/3ML NEB HHN SCH ×6 (00:03→21:17)
[2020-02-09 06:19] LABS: CHLORIDE 105 mEq/L (98-107)
[2020-02-09 06:21] LABS: HEMATOCRIT. 43.7 % (36.0-48.0); HEMOGLOBIN. 14.3 g/dL (12.0-16.0); MEAN CORPUSCULAR HEMOGLOBIN 30.6 pg (28.0-32.0); MEAN CORPUSCULAR VOLUME 93.4 fL (81.0-99.0); MEAN PLATELET VOLUME 10.3 fl (7.4-10.4); PLATELET 132 x1000/uL (130-400); RED BLOOD CELL COUNT 4.68 mill/uL (4.2-5.4); RED CELL DISTRIBUTION WIDTH 13.9 % (11.6-14.6)
[2020-02-09 08:37] LABS: BG BASE EXCESS 5.2 mmol/L (-2.0-2.0); BG CARBOXYHEMOGLOBIN 0.7 % (0.5-1.5); BG DEOXYHEMOGLOBIN 1.7 % (0.0-5.0); BG METHEMOGLOBIN 0.3 % (0.0-1.5); BG OXYGEN SATURATION 98.3 % (92.0-98.5); BG OXYHEMOGLOBIN 97.3 % (94.0-97.0); BG PCO2 39.5 mmHg (35.0-45.0); BG PH 7.483 (7.350-7.450); BG PO2 109.5 mmHg (75.0-100.0); BG SAMPLE SITE RIGHT BRACHIAL; BG TOTAL HEMOGLOBIN 13.3 g/dL (12.0-18.0); BG VENT MODE VENT - AC
[2020-02-09 08:53] LABS: PLATELET ESTIMATE NORMAL
[2020-02-09] MEDS: METHYLPREDNISOLONE SOD SUCC 40 MG/ML VIAL IV SCH (10:54)
[2020-02-09] MEDS: HEPARIN 5000 UNITS/ML VIAL SUBCUT SCH ×2 (10:55→20:48)
[2020-02-09] MEDS: FUROSEMIDE 40MG TABLET PO SCH (10:56)
[2020-02-09] MEDS: CARVEDILOL 3.125 MG TABLET PO SCH ×2 (10:56→20:49)
[2020-02-09] MEDS: VANCOMYCIN 750 MG PREMIX 150 ML IV SCH (11:21)
[2020-02-09] MEDS: PANTOPRAZOLE SODIUM 40 MG/VIAL IV SCH (11:21)
[2020-02-09] MEDS: BLOOD SUGAR DIAGNOSTIC STRIP TEST SCH ×2 (11:30→20:33)
[2020-02-09] MEDS ORDERED: POTASSIUM CHLORIDE INJ 40 MEQ in DEXT 5% WATER 250 ML IV NR (12:00)
[2020-02-09 12:11] LABS: BG BASE EXCESS 3.2 mmol/L (-2.0-2.0); BG CARBOXYHEMOGLOBIN 0.4 % (0.5-1.5); BG FRACTION INSPIRED OXYGEN 40; BG HCO3 ACT 28.2 mmol/L (22.0-26.0); BG METHEMOGLOBIN 0.4 % (0.0-1.5); BG OXYHEMOGLOBIN 97.2 % (94.0-97.0); BG PCO2 44.5 mmHg (35.0-45.0); BG PO2 115.2 mmHg (75.0-100.0); BG TOTAL HEMOGLOBIN 14.7 g/dL (12.0-18.0); BG VENT MODE VENT - CPAP
[2020-02-09] MEDS ORDERED: THROAT LOZENGES-BENZOCAINE/MENTH/CETYLPYRD CL LOZENGES MM PRN (13:15)
[2020-02-09] MEDS ORDERED: PHENOL/SODIUM PHENOLATE 1.4% SRPAY 177ML MM PRN (13:15)
[2020-02-09] MEDS ORDERED: POTASSIUM CHLORIDE 20MEQ/PACKET NG NR (13:30)
[2020-02-09] MEDS: AZITHROMYCIN 500 MG in DEXT 5% WATER 250 ML IV SCH (16:38)
[2020-02-09] MEDS: AZTREONAM 1 G in DEXTROSE 5% WATER 50 ML IV SCH (19:24)
[2020-02-09] MEDS: INSULIN LISPRO 100 UNITS/ML SUBCUT SCH (20:34)
[2020-02-10] VITALS (26 sets, daily range): BP systolic 109–178; BP diastolic 56–95
[2020-02-10] MEDS: IPRATROPIUM/ALBUTEROL 0.5-3(2.5)MG/3ML NEB HHN SCH ×6 (00:53→21:44)
[2020-02-10 05:11] LABS: BASOPHILS % 0.1 % (0.0-2.0); HEMOGLOBIN. 12.6 g/dL (12.0-16.0); LYMPHOCYTES % 8.5 % (20.0-50.0); MEAN CORPUSCULAR HEMOGLOBIN 30.7 pg (28.0-32.0); MEAN CORPUSCULAR VOLUME 92.8 fL (81.0-99.0); MEAN PLATELET VOLUME 10.1 fl (7.4-10.4); MONOCYTES % 5.9 % (2.0-8.0); NEUTROPHILS % 85.5 % (40.0-76.0); PLATELET 125 x1000/uL (130-400); RED BLOOD CELL COUNT 4.09 mill/uL (4.2-5.4); RED CELL DISTRIBUTION WIDTH 14.1 % (11.6-14.6)
[2020-02-10 05:19] LABS: CHLORIDE 108 mEq/L (98-107)
[2020-02-10] MEDS: INSULIN LISPRO 100 UNITS/ML SUBCUT SCH ×4 (06:13→21:00)
[2020-02-10] MEDS: BLOOD SUGAR DIAGNOSTIC STRIP TEST SCH ×4 (06:13→21:17)
[2020-02-10] MEDS: AZTREONAM 1 G in DEXTROSE 5% WATER 50 ML IV SCH ×2 (06:13→18:13)
[2020-02-10] MEDS: BUDESONIDE 0.5MG/2ML NEB HHN SCH ×2 (09:26→21:44)
[2020-02-10] MEDS: FUROSEMIDE 40MG TABLET PO SCH (11:17)
[2020-02-10] MEDS: METHYLPREDNISOLONE SOD SUCC 40 MG/ML VIAL IV SCH (11:17)
[2020-02-10] MEDS: PANTOPRAZOLE SODIUM 40 MG/VIAL IV SCH (11:17)
[2020-02-10] MEDS: HEPARIN 5000 UNITS/ML VIAL SUBCUT SCH ×2 (11:18→21:17)
[2020-02-10] MEDS: CARVEDILOL 3.125 MG TABLET PO SCH ×2 (11:19→21:00)
[2020-02-10] MEDS ORDERED: MAGNESIUM HYDROXIDE 400MG/5ML 30ML UDC PO PRN (11:45)
[2020-02-10] MEDS ORDERED: POLYETHYLENE GLYCOL 3350 (17GM) 1 DOSE PACK PO PRN (11:45)
[2020-02-10] MEDS ORDERED: DOCUSATE SODIUM 100MG CAPSULE PO PRN (11:45)
[2020-02-10] MEDS ORDERED: BISACODYL 10MG SUPP PR PRN (11:45)
[2020-02-10] MEDS: AZITHROMYCIN 500 MG in DEXT 5% WATER 250 ML IV SCH (18:08)
[2020-02-10] MEDS ORDERED: SENNOSIDES/DOCUSATE SOD 8.6/50MG TABLET PO PRN (21:00)
[2020-02-11] VITALS: BP 110/76
[2020-02-11] MEDS: IPRATROPIUM/ALBUTEROL 0.5-3(2.5)MG/3ML NEB HHN SCH ×6 (00:41→21:27)
[2020-02-11 04:00] VITALS: BP 103/66
[2020-02-11] MEDS: AZTREONAM 1 G in DEXTROSE 5% WATER 50 ML IV SCH ×2 (05:44→18:14)
[2020-02-11] MEDS: BLOOD SUGAR DIAGNOSTIC STRIP TEST SCH ×4 (05:44→21:00)
[2020-02-11 07:01] LABS: CHLORIDE 103 mEq/L (98-107)
[2020-02-11 07:07] LABS: BASOPHILS % 0.1 % (0.0-2.0); EOSINOPHILS % 0.1 % (0.0-5.0); HEMATOCRIT. 38.2 % (36.0-48.0); HEMOGLOBIN. 12.6 g/dL (12.0-16.0); LYMPHOCYTES % 13.5 % (20.0-50.0); MEAN CORPUSCULAR HEMOGLOBIN 30.5 pg (28.0-32.0); MEAN CORPUSCULAR VOLUME 92.3 fL (81.0-99.0); MEAN PLATELET VOLUME 10.2 fl (7.4-10.4); MONOCYTES % 6.6 % (2.0-8.0); NEUTROPHILS % 79.7 % (40.0-76.0); PLATELET 117 x1000/uL (130-400); RED BLOOD CELL COUNT 4.14 mill/uL (4.2-5.4); RED CELL DISTRIBUTION WIDTH 14.1 % (11.6-14.6)
[2020-02-11] MEDS: INSULIN LISPRO 100 UNITS/ML SUBCUT SCH ×4 (07:40→21:00)
[2020-02-11] MEDS: FUROSEMIDE 40MG TABLET PO SCH (08:42)
[2020-02-11] MEDS: BUDESONIDE 0.5MG/2ML NEB HHN SCH (08:42)
[2020-02-11] MEDS: METHYLPREDNISOLONE SOD SUCC 40 MG/ML VIAL IV SCH (08:42)
[2020-02-11] MEDS: HEPARIN 5000 UNITS/ML VIAL SUBCUT SCH ×2 (08:42→22:11)
[2020-02-11] MEDS: PANTOPRAZOLE SODIUM 40 MG/VIAL IV SCH (08:42)
[2020-02-11] MEDS: CARVEDILOL 3.125 MG TABLET PO SCH ×2 (08:43→22:10)
[2020-02-11 10:20] LABS: CHLORIDE 103 mEq/L (98-107)
[2020-02-11 16:09] LABS: BASOPHILS % 0.1 % (0.0-2.0); EOSINOPHILS % 0.1 % (0.0-5.0); HEMATOCRIT. 38.3 % (36.0-48.0); HEMOGLOBIN. 12.7 g/dL (12.0-16.0); LYMPHOCYTES % 11.1 % (20.0-50.0); MEAN CORPUSCULAR HEMOGLOBIN 30.8 pg (28.0-32.0); MEAN PLATELET VOLUME 9.9 fl (7.4-10.4); MONOCYTES % 2.8 % (2.0-8.0); NEUTROPHILS % 85.9 % (40.0-76.0); PLATELET 120 x1000/uL (130-400); RED BLOOD CELL COUNT 4.12 mill/uL (4.2-5.4); RED CELL DISTRIBUTION WIDTH 13.5 % (11.6-14.6)
[2020-02-11] MEDS: AZITHROMYCIN 500 MG in DEXT 5% WATER 250 ML IV SCH (16:20)
[2020-02-11 20:00] VITALS: BP 122/59
[2020-02-12] VITALS: BP 106/59
[2020-02-12] MEDS: BUDESONIDE 0.5MG/2ML NEB HHN SCH ×3 (00:32→21:43)
[2020-02-12] MEDS: IPRATROPIUM/ALBUTEROL 0.5-3(2.5)MG/3ML NEB HHN SCH ×6 (00:32→21:44)
[2020-02-12 04:00] VITALS: BP 133/61
[2020-02-12] MEDS: AZTREONAM 1 G in DEXTROSE 5% WATER 50 ML IV SCH (05:36)
[2020-02-12 06:42] LABS: BASOPHILS % 0.1 % (0.0-2.0); EOSINOPHILS % 0.3 % (0.0-5.0); HEMATOCRIT. 37.7 % (36.0-48.0); HEMOGLOBIN. 12.5 g/dL (12.0-16.0); LYMPHOCYTES % 22.7 % (20.0-50.0); MEAN CORPUSCULAR HEMOGLOBIN 30.9 pg (28.0-32.0); MEAN CORPUSCULAR VOLUME 93.3 fL (81.0-99.0); MEAN PLATELET VOLUME 10.4 fl (7.4-10.4); MONOCYTES % 6.7 % (2.0-8.0); NEUTROPHILS % 70.2 % (40.0-76.0); PLATELET 115 x1000/uL (130-400); RED BLOOD CELL COUNT 4.04 mill/uL (4.2-5.4); RED CELL DISTRIBUTION WIDTH 14.1 % (11.6-14.6)
[2020-02-12] MEDS: BLOOD SUGAR DIAGNOSTIC STRIP TEST SCH ×4 (06:42→21:19)
[2020-02-12] MEDS: INSULIN LISPRO 100 UNITS/ML SUBCUT SCH ×4 (06:42→21:00)
[2020-02-12 07:00] LABS: CHLORIDE 101 mEq/L (98-107)
[2020-02-12 08:00] VITALS: BP 120/77
[2020-02-12] MEDS: HEPARIN 5000 UNITS/ML VIAL SUBCUT SCH ×2 (08:49→21:18)
[2020-02-12] MEDS: METHYLPREDNISOLONE SOD SUCC 40 MG/ML VIAL IV SCH (08:50)
[2020-02-12] MEDS: PANTOPRAZOLE SODIUM 40 MG/VIAL IV SCH (08:50)
[2020-02-12] MEDS: CARVEDILOL 3.125 MG TABLET PO SCH ×2 (08:52→21:17)
[2020-02-12] MEDS: FUROSEMIDE 40MG TABLET PO SCH (08:52)
[2020-02-12 12:00] VITALS: BP 110/73
[2020-02-12] MEDS ORDERED: POTASSIUM CHLORIDE 20MEQ TABLET SR PO SCH (13:45)
[2020-02-12 16:00] VITALS: BP 109/68
[2020-02-12] MEDS ORDERED: INFLUENZA VACCINE 05/PF 0.5 ML VIAL IM ONE (17:15)
[2020-02-12 20:00] VITALS: BP 118/68
[2020-02-13] VITALS: BP 108/66
[2020-02-13] MEDS: IPRATROPIUM/ALBUTEROL 0.5-3(2.5)MG/3ML NEB HHN SCH ×3 (00:46→08:30)
[2020-02-13 02:31] VITALS: BP 70/50
[2020-02-13 04:00] VITALS: BP 122/77
[2020-02-13] MEDS: INSULIN LISPRO 100 UNITS/ML SUBCUT SCH (07:24)
[2020-02-13] MEDS: BLOOD SUGAR DIAGNOSTIC STRIP TEST SCH (07:24)
[2020-02-13 08:00] VITALS: BP 118/82
[2020-02-13] MEDS: BUDESONIDE 0.5MG/2ML NEB HHN SCH (08:30)
[2020-02-13 08:33] VITALS: BP 118/82
[2020-02-13] MEDS: FUROSEMIDE 40MG TABLET PO SCH (09:22)
[2020-02-13] MEDS: CARVEDILOL 3.125 MG TABLET PO SCH (09:22)
[2020-02-13] MEDS: METHYLPREDNISOLONE SOD SUCC 40 MG/ML VIAL IV SCH (09:22)
[2020-02-13] MEDS: PANTOPRAZOLE SODIUM 40 MG/VIAL IV SCH (09:22)
[2020-02-13] MEDS: HEPARIN 5000 UNITS/ML VIAL SUBCUT SCH (09:23)
[2020-02-13 09:41] LABS: BASOPHILS % 0.1 % (0.0-2.0); EOSINOPHILS % 0.9 % (0.0-5.0); HEMATOCRIT. 38.7 % (36.0-48.0); HEMOGLOBIN. 13.1 g/dL (12.0-16.0); LYMPHOCYTES % 23.6 % (20.0-50.0); MEAN CORPUSCULAR HEMOGLOBIN 31.4 pg (28.0-32.0); MEAN CORPUSCULAR VOLUME 92.5 fL (81.0-99.0); MEAN PLATELET VOLUME 10.1 fl (7.4-10.4); MONOCYTES % 8.3 % (2.0-8.0); NEUTROPHILS % 67.1 % (40.0-76.0); PLATELET 127 x1000/uL (130-400); RED BLOOD CELL COUNT 4.18 mill/uL (4.2-5.4); RED CELL DISTRIBUTION WIDTH 13.9 % (11.6-14.6)
[2020-02-13 09:49] LABS: CHLORIDE 105 mEq/L (98-107)
[2020-02-13 12:00] VITALS: BP 100/61
[2020-02-13] MEDS ORDERED: AMLODIPINE 2.5MG TABLET PO SCH (12:15)
== END 2020-02-13 12:05 | disposition home health service (06) | DRG 871 ==
LOC: ER 08:34 → EDBEDREQSVC 11:11 → EDBEDREQ 11:11 → EDBEDREQTM 11:11 → ENRESERV 12:02 → MICUSO 12:08 → EDBEDREQ 12:30 → EDBEDREQTM 12:30 → 8WST 02-10 16:02
PROVIDERS: ADMIT Internal Medicine; ATTEND Internal Medicine
PROC: 5A1945Z Respiratory Ventilation, 24-96 Consecutive Hours (ICD-10-PCS; principal; 2020-02-07)
PROC: 0BH18EZ Insertion of Endotracheal Airway into Trachea, Via Natural or Artificial Opening Endoscopic (ICD-10-PCS; 2020-02-07)
DX: A41.9 Sepsis, unspecified organism (principal); G92 Toxic encephalopathy; I21.4 Non-ST elevation (NSTEMI) myocardial infarction; I50.23 Acute on chronic systolic (congestive) heart failure; J18.9 Pneumonia, unspecified organism; J96.02 Acute respiratory failure with hypercapnia; K72.00 Acute and subacute hepatic failure without coma; R65.21 Severe sepsis with septic shock; J96.01 Acute respiratory failure with hypoxia; J44.1 Chronic obstructive pulmonary disease with (acute) exacerbation; J44.0 Chronic obstructive pulmonary disease with (acute) lower respiratory infection; M62.82 Rhabdomyolysis; I42.9 Cardiomyopathy, unspecified; E87.2 Acidosis; I47.2 Ventricular tachycardia; E11.65 Type 2 diabetes mellitus with hyperglycemia; E87.5 Hyperkalemia; I11.0 Hypertensive heart disease with heart failure; E78.5 Hyperlipidemia, unspecified; E87.6 Hypokalemia; I25.10 Atherosclerotic heart disease of native coronary artery without angina pectoris; I34.0 Nonrheumatic mitral (valve) insufficiency; I27.20 Pulmonary hypertension, unspecified; E66.9 Obesity, unspecified; Z20.828 Contact with and (suspected) exposure to other viral communicable diseases; Z88.0 Allergy status to penicillin; Z91.14 Patient's other noncompliance with medication regimen; Z88.8 Allergy status to other drugs, medicaments and biological substances; Z79.2 Long term (current) use of antibiotics; Z79.899 Other long term (current) drug therapy; Z68.35 Body mass index [BMI] 35.0-35.9, adult
CPT/HCPCS: 31500; 36415; 36600; 71045; 71275; 80048; 80053; 80202; 80305; 81003; 82140; 82375; 82550; 82728; 82805; 82962; 83036; 83605; 83615; 83735; 84145; 84478; 84484; 85025; 85379; 85384; 86140; 87070; 87635; 90686; 92610; 93005; 93306; 94002; 94640; 97116; 97162; 97535; 99291; C9113; J0330; J0456; J1644; J1815; J1940; J2185; J2704; J2920; J2930; J3010; J3370; J3475; J3480; J3490; J7050; J7060; J7626